=== PATIENT | female | born 1985 | race Caucasian/White ===

== ENCOUNTER 2020-03-02 12:34 | Emergency (ER) | payer OTHER ==
[~2020-03-02] VITALS: Ht 167.6 cm; Wt 77.0 kg
[2020-03-02] MEDS ORDERED: gabapentin (12:36)
[2020-03-02] MEDS: SODIUM CHLORIDE 0.9% 1,000 ML IV ONE ×2 (14:06→16:54)
[2020-03-02 14:22] LABS: BASOPHILS % 0.4 % (0.0-2.0); EOSINOPHILS % 1.8 % (0.0-5.0); HEMATOCRIT. 38.5 % (36.0-48.0); HEMOGLOBIN. 13.1 g/dL (12.0-16.0); LYMPHOCYTES % 36.1 % (20.0-50.0); MEAN PLATELET VOLUME 9.3 fl (7.4-10.4); MONOCYTES % 6.3 % (2.0-8.0); NEUTROPHILS % 55.4 % (40.0-76.0); PLATELET 147 x1000/uL (130-400); RED BLOOD CELL COUNT 4.23 mill/uL (4.2-5.4); RED CELL DISTRIBUTION WIDTH 14.4 % (11.6-14.6)
[2020-03-02 14:30] LABS: CHLORIDE 109 mEq/L (98-107)
[2020-03-02 15:40] LABS: CLARITY URINE CLEAR (CLEAR); COLOR URINE YELLOW (YELLOW); KETONES URINE NEGATIVE (NEGATIVE); LEUKOCYTE ESTERASE URINE NEGATIVE (NEGATIVE); NITRITE URINE NEGATIVE (NEGATIVE); OCCULT BLOOD URINE NEGATIVE (NEGATIVE); PH URINE 5.5 (4.5-8.0); PROTEIN URINE 1+ (NEGATIVE); SPECIFIC GRAVITY URINE 1.026 (1.005-1.030); UROBILINOGEN URINE 0.2 E.U./dL (0.2-1.0)
[2020-03-02 16:01] LABS: *AMPHETAMINES SCREEN URINE NEGATIVE (NEGATIVE); *BARBITURATES SCREEN URINE NEGATIVE (NEGATIVE); *BENZODIAZEPINES SCREEN URINE NEGATIVE (NEGATIVE); *COCAINE SCREEN URINE NEGATIVE (NEGATIVE); METHADONE URINE SCREEN NEGATIVE (NEGATIVE)
[2020-03-02 16:02] LABS: CANNABINOID URINE SCREEN NEGATIVE (NEGATIVE); PHENCYCLIDINE URINE SCREEN NEGATIVE (NEGATIVE)
[2020-03-02 16:03] LABS: OPIATES URINE SCREEN NEGATIVE (NEGATIVE)
[2020-03-02 17:25] VITALS: BP 113/76
== END 2020-03-02 17:39 | disposition home or self-care (01) ==
LOC: ER 12:46
DX: R00.2 Palpitations (principal); E11.65 Type 2 diabetes mellitus with hyperglycemia; E78.00 Pure hypercholesterolemia, unspecified; E03.9 Hypothyroidism, unspecified; Z98.890 Other specified postprocedural states; Z98.51 Tubal ligation status
CPT/HCPCS: 36415; 71045; 80053; 80305; 81003; 81025; 82962; 83880; 84443; 84484; 85025; 85379; 93005; 96360; 96361; 99285; J7030

== ENCOUNTER 2020-07-24 12:53 | Inpatient (IN) | payer MEDICAID, OTHER ==
[~2020-07-24] VITALS: Ht 165.1 cm; Wt 70.3 kg
[~2020-07-24 12:53] MED LIST: gabapentin
[2020-07-24 14:00] LABS: BASOPHILS % 0.6 % (0.0-2.0); EOSINOPHILS % 2.4 % (0.0-5.0); HEMATOCRIT. 41.5 % (36.0-48.0); HEMOGLOBIN. 13.8 g/dL (12.0-16.0); LYMPHOCYTES % 20.2 % (20.0-50.0); MEAN CORPUSCULAR HEMOGLOBIN 30.8 pg (28.0-32.0); MEAN CORPUSCULAR VOLUME 92.5 fL (81.0-99.0); MEAN PLATELET VOLUME 9.2 fl (7.4-10.4); NEUTROPHILS % 69.8 % (40.0-76.0); PLATELET 226 x1000/uL (130-400); RED BLOOD CELL COUNT 4.48 mill/uL (4.2-5.4)
[2020-07-24 14:07] LABS: CHLORIDE 103 mEq/L (98-107)
[2020-07-24 14:18] LABS: INR 0.9; PROTHROMBIN TIME 9.8 sec (9.6-11.0)
[2020-07-24] MEDS ORDERED: DIPHENHYDRAMINE 50MG/ML VIAL IV ONE (16:15)
[2020-07-24] MEDS ORDERED: METOCLOPRAMIDE HCL 10MG/2ML VIAL IV ONE (16:15)
[2020-07-24 16:29] LABS: CLARITY URINE CLEAR (CLEAR); COLOR URINE YELLOW (YELLOW); KETONES URINE NEGATIVE (NEGATIVE); LEUKOCYTE ESTERASE URINE NEGATIVE (NEGATIVE); NITRITE URINE NEGATIVE (NEGATIVE); OCCULT BLOOD URINE NEGATIVE (NEGATIVE); PROTEIN URINE NEGATIVE (NEGATIVE); SPECIFIC GRAVITY URINE 1.033 (1.005-1.030); UROBILINOGEN URINE 0.2 E.U./dL (0.2-1.0)
[2020-07-24] MEDS ORDERED: PREDNISONE 20MG TABLET PO ONE (17:15)
[2020-07-24] MEDS ORDERED: DEXTROSE 50% WATER 50ML SYRINGE IV PRN (22:15)
[2020-07-24] MEDS: INSULIN LISPRO (MEDIUM DOSE) 100 UNITS/ML SUBCUT SCH (22:19)
[2020-07-24] MEDS ORDERED: INSULIN GLARGINE UD 100 UNITS/ML SYR SUBCUT SCH (23:30)
[2020-07-24 23:58] VITALS: BP 119/42
[2020-07-25] VITALS: BP 119/72
[2020-07-25] MEDS ORDERED: GABA300C PO (01:17)
[2020-07-25] MEDS ORDERED: LANTUSUD SUBCUT (01:20)
[2020-07-25] MEDS ORDERED: FOLI-43 MT (01:41)
[2020-07-25] MEDS ORDERED: lispro (01:41)
[2020-07-25 04:00] VITALS: BP 162/61
[2020-07-25] MEDS: BLOOD SUGAR DIAGNOSTIC STRIP TEST SCH ×4 (07:48→21:18)
[2020-07-25] MEDS ORDERED: INSULIN LISPRO (MEDIUM DOSE) 100 UNITS/ML SUBCUT SCH (08:20)
[2020-07-25] MEDS: INSULIN LISPRO (MEDIUM DOSE) 100 UNITS/ML SUBCUT SCH ×4 (08:38→21:31)
[2020-07-25] MEDS: FAMOTIDINE 20MG TABLET PO SCH ×2 (08:38→21:18)
[2020-07-25] MEDS: METHYLPREDNISOLONE SOD SUCC 40 MG/ML VIAL IV SCH ×2 (08:38→17:23)
[2020-07-25] MEDS: HYDROCODONE/ACETAMINOPHEN 5/325MG TABLET PO PRN ×2 (08:39→12:51)
[2020-07-25] MEDS: INSULIN GLARGINE UD 100 UNITS/ML SYR SUBCUT SCH ×2 (09:40→21:29)
[2020-07-25 12:01] VITALS: BP 104/77
[2020-07-25] MEDS: INSULIN LISPRO 100 UNITS/ML SUBCUT SCH ×2 (12:49→18:28)
[2020-07-25] MEDS: LORAZEPAM 2MG/ML CPJ IV PRN ×2 (14:07→22:58)
[2020-07-25 16:00] VITALS: BP 117/72
[2020-07-25] MEDS ORDERED: LORAZEPAM 2MG/ML CPJ IV NR (19:30)
[2020-07-25] MEDS: MORPHINE SULFATE 2 MG/ML CPJ (NOT FOR IM USE) IV PRN (19:53)
[2020-07-25] MEDS: NYSTATIN 100,000 UNITS/GM OINT 15GM TOP SCH (21:18)
[2020-07-26] VITALS: BP 99/49
[2020-07-26] MEDS: METHYLPREDNISOLONE SOD SUCC 40 MG/ML VIAL IV SCH ×4 (01:04→23:56)
[2020-07-26 04:08] VITALS: BP 104/60
[2020-07-26] MEDS: BLOOD SUGAR DIAGNOSTIC STRIP TEST SCH ×4 (06:04→20:32)
[2020-07-26] MEDS: FAMOTIDINE 20MG TABLET PO SCH ×2 (06:04→20:08)
[2020-07-26] MEDS: MORPHINE SULFATE 2 MG/ML CPJ (NOT FOR IM USE) IV PRN ×3 (06:13→21:44)
[2020-07-26 08:00] VITALS: BP 131/82
[2020-07-26] MEDS: NYSTATIN 100,000 UNITS/GM OINT 15GM TOP SCH ×2 (08:08→21:03)
[2020-07-26] MEDS: INSULIN LISPRO (MEDIUM DOSE) 100 UNITS/ML SUBCUT SCH ×4 (08:10→21:00)
[2020-07-26] MEDS: INSULIN LISPRO 100 UNITS/ML SUBCUT SCH ×3 (08:10→17:59)
[2020-07-26 11:16] LABS: HEMATOCRIT. 42.5 % (36.0-48.0); MEAN CORPUSCULAR HEMOGLOBIN 30.4 pg (28.0-32.0); MEAN CORPUSCULAR VOLUME 92.2 fL (81.0-99.0); MEAN PLATELET VOLUME 9.4 fl (7.4-10.4); PLATELET 264 x1000/uL (130-400); RED BLOOD CELL COUNT 4.62 mill/uL (4.2-5.4); RED CELL DISTRIBUTION WIDTH 14.4 % (11.6-14.6)
[2020-07-26] MEDS: INSULIN GLARGINE UD 100 UNITS/ML SYR SUBCUT SCH ×2 (11:26→21:01)
[2020-07-26 11:30] LABS: CHLORIDE 101 mEq/L (98-107)
[2020-07-26 12:00] VITALS: BP 121/69
[2020-07-26 13:01] LABS: PLATELET ESTIMATE NORMAL
[2020-07-26] MEDS: HYDROCODONE/ACETAMINOPHEN 5/325MG TABLET PO PRN ×3 (13:20→23:57)
[2020-07-26 16:00] VITALS: BP 112/75
[2020-07-26] MEDS: LORAZEPAM 2MG/ML CPJ IV PRN (16:06)
[2020-07-26 20:36] VITALS: BP 141/88
[2020-07-26] MEDS ORDERED: NA PHOS,M-B/NA PHOS,DI-BA ENEMA 118ML PR PRN (20:45)
[2020-07-26] MEDS: DOCUSATE SODIUM 100MG CAPSULE PO SCH (20:57)
[2020-07-27 00:30] VITALS: BP 131/78
[2020-07-27] MEDS ORDERED: METHOTREXATE SODIUM 2 . 5MG TABLET PO SCH ×4 (01:00→22:00)
[2020-07-27 04:00] VITALS: BP 109/74
[2020-07-27] MEDS: GABAPENTIN 300MG CAPSULE PO SCH ×3 (06:10→20:38)
[2020-07-27] MEDS: BLOOD SUGAR DIAGNOSTIC STRIP TEST SCH ×4 (06:40→21:30)
[2020-07-27] MEDS: LEVOTHYROXINE SODIUM 25MCG TABLET PO SCH (06:50)
[2020-07-27] MEDS: FAMOTIDINE 20MG TABLET PO SCH ×2 (06:50→20:38)
[2020-07-27 07:36] LABS: CREATINE KINASE 23 IU/L (26-192)
[2020-07-27 08:00] VITALS: BP 120/72
[2020-07-27] MEDS: HYDROXYCHLOROQUINE SULFATE 200MG TABLET PO SCH (08:47)
[2020-07-27] MEDS: DULOXETINE HCL 60MG DR CAPSULE PO SCH (08:47)
[2020-07-27] MEDS: DICLOFENAC SODIUM 75MG DR (EC) TABLET PO SCH ×2 (08:48→20:38)
[2020-07-27] MEDS: PREDNISONE 10MG TABLET PO SCH (08:48)
[2020-07-27] MEDS: DOCUSATE SODIUM 100MG CAPSULE PO SCH ×2 (08:48→18:28)
[2020-07-27] MEDS: BUSPIRONE HCL 5MG TABLET PO SCH ×2 (08:48→20:38)
[2020-07-27] MEDS: NYSTATIN 100,000 UNITS/GM OINT 15GM TOP SCH ×2 (08:50→20:42)
[2020-07-27] MEDS: INSULIN LISPRO (MEDIUM DOSE) 100 UNITS/ML SUBCUT SCH ×4 (08:52→21:29)
[2020-07-27] MEDS: INSULIN LISPRO 100 UNITS/ML SUBCUT SCH ×3 (08:53→18:29)
[2020-07-27] MEDS: TRIAMCINOLONE ACETONIDE 0.1% CREAM 15GM TOP SCH ×3 (09:00→20:42)
[2020-07-27] MEDS: HYDROCODONE/ACETAMINOPHEN 5/325MG TABLET PO PRN ×2 (09:10→18:28)
[2020-07-27] MEDS: INSULIN GLARGINE UD 100 UNITS/ML SYR SUBCUT SCH ×2 (10:18→21:29)
[2020-07-27] MEDS: MORPHINE SULFATE 2 MG/ML CPJ (NOT FOR IM USE) IV PRN (11:40)
[2020-07-27 11:50] VITALS: BP 125/74
[2020-07-27] MEDS: LORAZEPAM 2MG/ML CPJ IV PRN ×2 (14:01→22:24)
[2020-07-27 16:07] VITALS: BP 112/67
[2020-07-27] MEDS ORDERED: MORPHINE SULFATE 4 MG/ML CPJ (NOT FOR IM USE) IV PRN (16:30)
[2020-07-27 20:00] VITALS: BP 124/88
[2020-07-27] MEDS: HYDROCORTISONE 2.5% CREAM 20GM TOP SCH (20:41)
[2020-07-28] VITALS: BP 102/53
[2020-07-28 04:00] VITALS: BP 115/68
[2020-07-28] MEDS: GABAPENTIN 300MG CAPSULE PO SCH ×3 (05:50→21:13)
[2020-07-28] MEDS: FAMOTIDINE 20MG TABLET PO SCH ×2 (05:50→21:13)
[2020-07-28] MEDS: LEVOTHYROXINE SODIUM 25MCG TABLET PO SCH (05:50)
[2020-07-28] MEDS: BLOOD SUGAR DIAGNOSTIC STRIP TEST SCH ×4 (06:07→21:13)
[2020-07-28] MEDS: INSULIN LISPRO (MEDIUM DOSE) 100 UNITS/ML SUBCUT SCH ×4 (07:15→21:00)
[2020-07-28] MEDS: INSULIN LISPRO 100 UNITS/ML SUBCUT SCH ×3 (07:15→17:09)
[2020-07-28 08:00] VITALS: BP 113/72
[2020-07-28] MEDS: HYDROXYCHLOROQUINE SULFATE 200MG TABLET PO SCH (08:17)
[2020-07-28] MEDS: PREDNISONE 10MG TABLET PO SCH (08:17)
[2020-07-28] MEDS: DICLOFENAC SODIUM 75MG DR (EC) TABLET PO SCH ×2 (08:17→21:13)
[2020-07-28] MEDS: BUSPIRONE HCL 5MG TABLET PO SCH ×2 (08:17→21:13)
[2020-07-28] MEDS: DOCUSATE SODIUM 100MG CAPSULE PO SCH ×2 (08:18→17:07)
[2020-07-28] MEDS: DULOXETINE HCL 60MG DR CAPSULE PO SCH (08:18)
[2020-07-28] MEDS: HYDROCODONE/ACETAMINOPHEN 5/325MG TABLET PO PRN (08:21)
[2020-07-28] MEDS: NYSTATIN 100,000 UNITS/GM OINT 15GM TOP SCH ×2 (08:22→21:20)
[2020-07-28] MEDS: TRIAMCINOLONE ACETONIDE 0.1% CREAM 15GM TOP SCH ×2 (08:22→21:20)
[2020-07-28 09:09] LABS: ANTI-DNA DOUBLE STRANDED QUANT 2 IU/mL (0-9)
[2020-07-28] MEDS ORDERED: METHOCARBAMOL 500MG TABLET PO PRN (09:15)
[2020-07-28] MEDS: OXYCODONE HCL/ACETAMINOPHEN 5/325MG TABLET PO PRN ×3 (11:54→21:20)
[2020-07-28] MEDS: INSULIN GLARGINE UD 100 UNITS/ML SYR SUBCUT SCH ×2 (11:59→21:14)
[2020-07-28 12:00] VITALS: BP 122/85
[2020-07-28] MEDS ORDERED: LORAZEPAM 0.5MG TABLET PO PRN (15:00)
[2020-07-28 16:00] VITALS: BP 110/63
[2020-07-28 20:00] VITALS: BP 130/84
[2020-07-28] MEDS: HYDROCORTISONE 2.5% CREAM 20GM TOP SCH (21:20)
[2020-07-29] VITALS: BP 105/73
[2020-07-29 04:00] VITALS: BP 100/69
[2020-07-29] MEDS: BLOOD SUGAR DIAGNOSTIC STRIP TEST SCH ×2 (06:25→13:03)
[2020-07-29] MEDS: LEVOTHYROXINE SODIUM 25MCG TABLET PO SCH (06:25)
[2020-07-29] MEDS: GABAPENTIN 300MG CAPSULE PO SCH (06:25)
[2020-07-29] MEDS: FAMOTIDINE 20MG TABLET PO SCH (06:27)
[2020-07-29 06:51] LABS: BASOPHILS % 0.3 % (0.0-2.0); EOSINOPHILS % 1.1 % (0.0-5.0); HEMATOCRIT. 42.5 % (36.0-48.0); HEMOGLOBIN. 14.1 g/dL (12.0-16.0); LYMPHOCYTES % 51.2 % (20.0-50.0); MEAN CORPUSCULAR VOLUME 93.3 fL (81.0-99.0); MEAN PLATELET VOLUME 8.9 fl (7.4-10.4); MONOCYTES % 5.8 % (2.0-8.0); NEUTROPHILS % 41.6 % (40.0-76.0); PLATELET 215 x1000/uL (130-400); RED BLOOD CELL COUNT 4.56 mill/uL (4.2-5.4); RED CELL DISTRIBUTION WIDTH 14.3 % (11.6-14.6)
[2020-07-29 07:22] LABS: CHLORIDE 104 mEq/L (98-107)
[2020-07-29] MEDS: OXYCODONE HCL/ACETAMINOPHEN 5/325MG TABLET PO PRN ×2 (07:38→13:12)
[2020-07-29] MEDS: INSULIN LISPRO (MEDIUM DOSE) 100 UNITS/ML SUBCUT SCH ×2 (07:50→12:50)
[2020-07-29] MEDS: PREDNISONE 10MG TABLET PO SCH (08:35)
[2020-07-29] MEDS: BUSPIRONE HCL 5MG TABLET PO SCH (08:35)
[2020-07-29] MEDS: INSULIN LISPRO 100 UNITS/ML SUBCUT SCH ×2 (08:36→13:08)
[2020-07-29] MEDS: DOCUSATE SODIUM 100MG CAPSULE PO SCH (08:37)
[2020-07-29] MEDS: DICLOFENAC SODIUM 75MG DR (EC) TABLET PO SCH (08:37)
[2020-07-29] MEDS: HYDROXYCHLOROQUINE SULFATE 200MG TABLET PO SCH (08:38)
[2020-07-29] MEDS: DULOXETINE HCL 60MG DR CAPSULE PO SCH (08:38)
[2020-07-29] MEDS: NYSTATIN 100,000 UNITS/GM OINT 15GM TOP SCH (08:39)
[2020-07-29] MEDS: TRIAMCINOLONE ACETONIDE 0.1% CREAM 15GM TOP SCH (08:39)
[2020-07-29 09:10] LABS: ALDOLASE 5.2 U/L (3.3-10.3)
[2020-07-29] MEDS: INSULIN GLARGINE UD 100 UNITS/ML SYR SUBCUT SCH (09:47)
[2020-07-29 10:23] VITALS: BP 101/52
[2020-07-29] MEDS ORDERED: METH-773 PO (11:28)
[2020-07-29] MEDS ORDERED: DULO60CA44 PO (11:28)
[2020-07-29] MEDS ORDERED: HYDR200T35 PO (11:28)
[2020-07-29] MEDS ORDERED: LEVO25TA7 PO (11:28)
[2020-07-29] MEDS ORDERED: MED4 MT (11:28)
[2020-07-29] MEDS ORDERED: METH2.5T PO ×3 (11:28)
[2020-07-29] MEDS ORDERED: BUSP5TAB3 PO (11:28)
[2020-07-29] MEDS ORDERED: OXYC1TAB21 PO (11:28)
[2020-07-29 12:46] VITALS: BP 110/63
[2020-07-29 13:12] VITALS: BP 110/63
[2020-07-30 17:10] LABS: ANTI-MYELOPEROXIDASE AB < 9.0 U/mL (0.0-9.0); ANTI-PROTEINASE 3 ABS < 3.5 U/mL (0.0-3.5)
[2020-07-31 13:10] LABS: ANA IFA Positive (.)
[2020-07-31 14:07] LABS: ATYPICAL P-ANCA <1:20 titer (Neg:<1:20); CYTOPLASMIC C-ANCA <1:20 titer (Neg:<1:20); PERINUCLEAR P-ANCA <1:20 titer (Neg:<1:20)
== END 2020-07-29 15:50 | disposition home or self-care (01) | DRG 346 ==
LOC: ER 12:53 → 6WST 17:04 → EDBEDREQ 17:08 → EDBEDREQTM 17:08 → ENRESERV 20:58
PROVIDERS: ADMIT Internal Medicine; ATTEND Internal Medicine
DX: M32.9 Systemic lupus erythematosus, unspecified (principal); E11.65 Type 2 diabetes mellitus with hyperglycemia; F41.9 Anxiety disorder, unspecified; M79.7 Fibromyalgia; E03.9 Hypothyroidism, unspecified; F43.10 Post-traumatic stress disorder, unspecified; I73.00 Raynaud's syndrome without gangrene; M47.22 Other spondylosis with radiculopathy, cervical region; Z98.891 History of uterine scar from previous surgery; Z79.899 Other long term (current) drug therapy; Z91.14 Patient's other noncompliance with medication regimen; Z79.4 Long term (current) use of insulin; Z80.0 Family history of malignant neoplasm of digestive organs; Z87.891 Personal history of nicotine dependence; Z83.3 Family history of diabetes mellitus; M47.9 Spondylosis, unspecified; R00.2 Palpitations; E86.0 Dehydration; R52 Pain, unspecified; M50.90 Cervical disc disorder, unspecified, unspecified cervical region
CPT/HCPCS: 36415; 71045; 72141; 72148; 80048; 80053; 81003; 82085; 82550; 82962; 83036; 83520; 83880; 84484; 85025; 85651; 86160; 86225; 86256; 93005; 93306; 97166; 99285; J1200; J1815; J2060; J2270; J2765; J2920; J7512; J8610

== ENCOUNTER 2022-03-25 09:20 | Emergency (ER) | payer MEDICAID, OTHER ==
[~2022-03-25] VITALS: Ht 165.1 cm; Wt 92.0 kg
[~2022-03-25 09:20] MED LIST changes: +BUSP5TAB3 PO; +DULO60CA45 PO; +FOLI-43 MT; +GABA300C PO; +HYDR200T35 PO; +LANTUSUD SUBCUT; +LEVO25TA7 PO; +MED4 MT; +METH-773 PO; +METH2.5T PO; +OXYC1TAB5 PO; +PROT20 MT; -gabapentin
[2022-03-25] MEDS ORDERED: HYDROCODONE/ACETAMINOPHEN 5/325MG TABLET PO NR (09:45)
[2022-03-25 11:42] LABS: CHLORIDE 102 mEq/L (98-107)
[2022-03-25 11:45] LABS: HEMATOCRIT. 39.9 % (36.0-48.0); HEMOGLOBIN. 13.2 g/dL (12.0-16.0); MEAN CORPUSCULAR HEMOGLOBIN 27.7 pg (28.0-32.0); MEAN CORPUSCULAR VOLUME 83.7 fL (81.0-99.0); MEAN PLATELET VOLUME 9.2 fl (7.4-10.4); PLATELET 251 x1000/uL (130-400); RED BLOOD CELL COUNT 4.77 mill/uL (4.2-5.4); RED CELL DISTRIBUTION WIDTH 14.5 % (11.6-14.6)
[2022-03-25 12:07] LABS: HCG SCREEN NEGATIVE
[2022-03-25 12:49] LABS: PLATELET ESTIMATE NORMAL
[2022-03-25] MEDS ORDERED: IBUPROFEN 600MG TABLET PO ONE (13:45)
[2022-03-25] MEDS ORDERED: HYDROCODONE/ACETAMINOPHEN 5/325MG TABLET PO ONE (13:45)
[2022-03-25 13:57] VITALS: BP 124/81
[2022-03-25] MEDS ORDERED: IBUP-2029 MT (15:47)
[2022-03-25] MEDS ORDERED: HYDR-4001 MT (15:47)
== END 2022-03-25 16:28 | disposition home or self-care (01) ==
LOC: ER 09:20
DX: M32.9 Systemic lupus erythematosus, unspecified (principal); E11.9 Type 2 diabetes mellitus without complications; Z79.4 Long term (current) use of insulin; Z79.899 Other long term (current) drug therapy
CPT/HCPCS: 36415; 71045; 73030; 80053; 83880; 84484; 84703; 85025; 85379; 93005; 93971; 99285

== ENCOUNTER 2024-01-31 23:14 | Emergency (ER) | payer OTHER ==
[~2024-01-31] VITALS: Ht 152.4 cm; Wt 76.0 kg
[~2024-01-31 23:14] MED LIST changes: +HYDR-4001 MT; +IBUP-2029 MT; -MED4 MT; +METH4TAB95 MT
[2024-01-31 23:29] VITALS: O2SAT 99
[2024-01-31 23:55] LABS: CHLORIDE 103 mEq/L (98-107); POTASSIUM 3.9 mEq/L (3.5-5.1); SODIUM 134 mEq/L (136-145)
[2024-01-31 23:56] LABS: CALCIUM 10.2 mg/dL (8.7-10.4); CARBON DIOXIDE 22 mEq/L (21-32)
[2024-02-01 00:01] LABS: CREATININE 0.9 mg/dL (0.6-1.0); UREA NITROGEN BLOOD 7 mg/dL (9-23)
[2024-02-01 00:03] LABS: ALANINE AMINOTRANSFERASE 24 IU/L (10-49); ALBUMIN 4.7 g/dL (3.2-4.8); ASPARTATE AMINOTRANSFERASE 27 IU/L (<34)
[2024-02-01 00:05] LABS: EOSINOPHILS % 5.3 % (0.0-5.0); HEMATOCRIT. 40.2 % (36.0-48.0); HEMOGLOBIN. 14.1 g/dL (12.0-16.0); LYMPHOCYTES % 34.3 % (20.0-50.0); MEAN CORPUSCULAR HEMOGLOBIN 29.5 pg (28.0-32.0); MEAN CORPUSCULAR VOLUME 84.2 fL (81.0-99.0); MEAN PLATELET VOLUME 9.8 fl (7.4-10.4); MONOCYTES % 7.4 % (2.0-8.0); PLATELET 297 x1000/uL (130-400); RED BLOOD CELL COUNT 4.77 mill/uL (4.2-5.4); RED CELL DISTRIBUTION WIDTH 14.8 % (11.6-14.6); WHITE BLOOD COUNT 9.6 x1000/uL (4.5-11.0)
[2024-02-01 00:06] LABS: INR 0.9
[2024-02-01 00:16] LABS: BILIRUBIN TOTAL 0.2 mg/dL (0.1-1.0); GLUCOSE 332 mg/dL (70-105); PROTEIN TOTAL 7.1 g/dL (6.0-8.3)
[2024-02-01 00:20] LABS: HCG SCREEN NEGATIVE
[2024-02-01 00:46] LABS: BILIRUBIN DIRECT < 0.1 mg/dL (<=3.0)
[2024-02-01] MEDS: KETOROLAC 30MG/ML VIAL IV STA (00:47)
[2024-02-01] MEDS: SODIUM CHLORIDE 0.9% 1,000 ML IV ONE (00:47)
[2024-02-01] MEDS: ONDANSETRON HCL 4MG/2ML INJ IV ONE (00:58)
[2024-02-01 01:00] VITALS: BP 139/87; PULSE 86; RESP 17; TEMP 36.94740; O2SAT 100
[2024-02-01 01:11] LABS: CLARITY URINE CLEAR (CLEAR); COLOR URINE YELLOW (YELLOW); GLUCOSE URINE 3+ (NEGATIVE); KETONES URINE TRACE (NEGATIVE); LEUKOCYTE ESTERASE URINE NEGATIVE (NEGATIVE); NITRITE URINE NEGATIVE (NEGATIVE); OCCULT BLOOD URINE 3+ (NEGATIVE); PH URINE 5.5 (4.5-8.0); PROTEIN URINE NEGATIVE (NEGATIVE); SPECIFIC GRAVITY URINE 1.033 (1.005-1.030); UROBILINOGEN URINE 0.2 E.U./dL (0.2-1.0)
[2024-02-01 02:15] LABS: SQUAMOUS EPITHELIAL CELL URINE FEW /lpf (RARE/1+)
[2024-02-01 02:18] LABS: RBC URINE 15-25 /hpf (0-2)
[2024-02-01 02:21] LABS: WBC URINE NONE SEEN /hpf (0-2)
[2024-02-01 02:22] LABS: BACTERIA URINE TRACE
== END 2024-02-01 05:01 | disposition left against medical advice (07) ==
LOC: ER 23:24 → EDBEDREQ 02-01 01:47 → EDBEDREQTM 02-01 01:47 → ER 02-01 05:01
DX: R10.9 Unspecified abdominal pain (principal); R11.2 Nausea with vomiting, unspecified; E11.9 Type 2 diabetes mellitus without complications; F41.9 Anxiety disorder, unspecified; Z79.899 Other long term (current) drug therapy; Z98.890 Other specified postprocedural states
CPT/HCPCS: 80076; 80048; 84703; 83690; 85025; 85610; 36415; 74176; 93005; 99285; 81003; 96374; 96375; J7030; J1885; J2405; Z7610 ×2